=== PATIENT | female | born 1985 | race Caucasian/White ===

== ENCOUNTER 2021-02-21 02:29 | Inpatient (IN) ==
[2021-02-21] MEDS ORDERED: *HR* Nalbuphine 10 MG/ML AMPUL IV PRN (02:37)
[2021-02-21] MEDS ORDERED: Famotidine 20 MG/2 ML VIAL IVP PRN (02:37)
[2021-02-21] MEDS ORDERED: Naloxone 0.4 MG/ML INJ IVP PRN (02:37)
[2021-02-21] MEDS ORDERED: Metoclopramide 10 MG/2 ML VIAL IVP PRN (02:37)
[2021-02-21] MEDS ORDERED: Lidocaine 1% 20 ML MDV INFILT PRN (02:37)
[2021-02-21] MEDS ORDERED: Ropivacaine/PF 0.2% 20 ML VIAL EP ONE (02:41)
[2021-02-21] MEDS ORDERED: EPHEDrine 50 MG/ML VIAL IVP PRN (02:41)
[2021-02-21] MEDS ORDERED: *HR* FentaNYL (PF) 100 MCG/2 ML VIAL EP ONE (02:41)
[2021-02-21] MEDS ORDERED: Epidural Premix (fent/bupiv) 110 ML EP SCH (02:45)
[2021-02-21] MEDS ORDERED: Ringers Solution, Lactated 1,000 ML IVC SCH (02:45)
[2021-02-21 03:54] LABS: Basophils % 0.1 %; Eosinophils # 0.1 K/mcL (0.0-0.6); Eosinophils % 0.9 %; Hematocrit 40.6 % (35.3-44.9); Hemoglobin 13.8 g/dL (11.5-15.4); Immature Granulocytes % 0.6 % (0-4); Lymphocytes # 1.7 K/mcL (0.6-4.6); Lymphocytes % 13.3 %; Mean Corpuscular Hemoglobin 29.6 pg (28.0-33.3); Mean Corpuscular Volume 86.9 fL (83.0-100.0); Mean Platelet Volume 10.2 fL (9.4-12.4); Monocytes # 0.6 K/mcL (0.0-1.3); Monocytes % 4.4 %; Neutrophils # 10.3 K/mcL (1.6-8.9); Platelet Count 295 K/mcL (140-400); Red Blood Count 4.67 M/mcL (3.82-4.97); Red Cell Distribution Width 14.2 % (11.5-14.5); Segmented Neutrophils % 80.7 %; White Blood Count 12.7 K/mcL (4.3-11.1)
[2021-02-21 03:55] LABS: Amphetamine Screen,Urine Negative ng/mL (Cutoff=1000); Barbiturate Screen,Urine Negative ng/mL (Cutoff=200); Benzodiazepines Screen,Urine Negative ng/mL (Cutoff=200); Cannabinoid Screen,Urine Negative ng/mL (Cutoff = 50); Cocaine Screen,Urine Negative ng/mL (Cutoff= 300); Opiate Screen,Urine Negative ng/mL (Cutoff=300); Phencyclidine Screen,Urine Negative ng/mL (Cutoff=25)
[2021-02-21 04:13] LABS: Influenza A PCR Negative (Negative); Influenza B PCR Negative (Negative); Resp. Syncytial Virus PCR Negative (Negative); SARS-CoV-2 by PCR (In House) Negative (Negative)
[2021-02-21] MEDS ORDERED: Oxytocin 20 units/ LR 1000 mL 20 UNIT/1,000 ML BAG IVC ONE ×2 (06:45→11:13)
[2021-02-21] MEDS ORDERED: Oxytocin 20 units/ LR 1000 mL 20 UNIT/1,000 ML BAG IVC SCH (11:13)
[2021-02-21] MEDS ORDERED: Ondansetron ODT 4 MG TAB.RAPDIS SL PRN (11:13)
[2021-02-21] MEDS ORDERED: Rho Immune Globulin 1,500 UNIT SYRINGE IM PRN (11:13)
[2021-02-21] MEDS ORDERED: Measles/Mumps/Rubella Vacc 0.5 ML VIAL SQ PRN (11:13)
[2021-02-21] MEDS ORDERED: Lanolin 7 G OINT...G. TP PRN (11:13)
[2021-02-21] MEDS ORDERED: Benzocaine/Menthol 56 GM AEROSOL SPRAY TP PRN (11:13)
[2021-02-21] MEDS: Prenatal Vit/FA 1 EACH TABLET PO SCH (12:39)
[2021-02-21] MEDS: Ibuprofen 600 MG TABLET PO SCH (19:45)
[2021-02-21] MEDS: Acetaminophen 325 MG TABLET PO SCH (19:45)
[2021-02-22 03:24] VITALS: O2SAT 97
[2021-02-22 07:52] VITALS: BP 100/64; PULSE 75; TEMP 98.6
[2021-02-22] MEDS: Prenatal Vit/FA 1 EACH TABLET PO SCH (08:39)
[2021-02-22] MEDS: Ibuprofen 600 MG TABLET PO SCH (08:39)
[2021-02-22] MEDS: Acetaminophen 325 MG TABLET PO SCH (08:40)
== END 2021-02-22 12:41 | disposition home or self-care (01) | DRG 807 ==
LOC: 1NENULAB 02:29 → 1NENUOBS 10:33
PROVIDERS: ADMIT Advanced Practice Midwife; ATTEND Advanced Practice Midwife